=== PATIENT | female | born 1975 | race Caucasian/White ===

== ENCOUNTER 2020-01-02 22:40 | Emergency (ER) | payer SELFPAY ==
[2020-01-02 22:55] VITALS: BP 154/93; PULSE 83; RESP 16; TEMP 36.4; O2SAT 97; BMI 32.9
--- NOTE | 2020-01-02 23:29 | CTR_ITS ---
PROCEDURE INFORMATION: Exam: CT Chest With Contrast Exam date and time: 01/02/2020 11:50 PM Age: 44 years old Clinical indication: Other: Bilat breast pain with numbness; Additional info: Bilateral breast pain with numbness, family h/o breast CA TECHNIQUE: Imaging protocol: Computed tomography of the chest with intravenous contrast. Radiation optimization: All CT scans at this facility use at least one of these dose optimization techniques: automated exposure control; mA and/or kV adjustment per patient size (includes targeted exams where dose is matched to clinical indication); or iterative reconstruction. Contrast material: OMNI 300; Contrast volume: 95 ml; Contrast route: INTRAVENOUS (IV); COMPARISON: CR Chest 1 [place] [id number] 12/05/2017 7:59 PM RADIATION DOSE METRICS: Total DLP (mGy-cm): 657.17 FINDINGS: Lungs: Right lower lobe atelectasis versus infiltrate. Pleural space: Trace right pleural effusion. Heart: Unremarkable. No cardiomegaly. No pericardial effusion. Aorta: Unremarkable. No aortic aneurysm. Lymph nodes: Unremarkable. No enlarged lymph nodes. Gallbladder and bile ducts: Cholecystectomy. Bones/joints: Unremarkable. No acute fracture. Soft tissues: Unremarkable. CT/CT chest w con* [id number] IMPRESSION: 1. Right lower lobe atelectasis versus infiltrate. 2. Trace right pleural effusion. 3. Cholecystectomy. Radiation Dose CTDIVOL = (mGy): DLP = 657.17 (mGy-cm)
[2020-01-02] MEDS: HYDROcodone-acetaminophen 5-325 mg Tablet 1 TAB PO (23:36)
[2020-01-02 23:38] VITALS: BP 171/98; PULSE 78; O2SAT 98
--- NOTE | 2020-01-02 23:46 | W.ED.GENADLT ---
HPI - General Adult General: Chief complaint: Abdominal Pain Stated complaint: Rt abd numbness Time Seen by Provider: 01/02/20 23:02 Source: patient Mode of arrival: ambulatory Limitations: no limitations History of Present Illness: HPI narrative: 44-year-old female patient presents to the emergency department with complaints of 2-day onset of breast pain. She reports left breast enlargement, complaining of right breast numbness with burning and itching. Primary care provider Dr. Colbert, previous mammogram 2 years ago, she denies cough congestion. Positive tobacco use, half pack a day, denies change of cough pattern or sputum production. She reports family history of breast cancer, her mother. Reports onset of right scapular pain/itching and numbness that radiates around to the right breast, she reports mother with similar findings at onset of breast cancer. Caitlin reports she is nervous as symptoms are similar to what her mother experienced. She denies rash or chronic back pain. She denies heavy lifting or falls. [id number]. Onset (ago): day(s) (2) Location: chest, right and upper extremity Severity: moderate Quality: burning, aching, dull and constant Pain Consistency: constant Relieving factors: none Exacerbating factors: none Associated symptoms: Deny chest pain, diaphoresis, dyspnea, fevers/chills, headache(s), nausea, rash, short of breath, vomiting or weakness Treatments prior to arrival: other (Tylenol) Review of Systems General: Reports: 10 or more systems reviewed and unremarkable except in HPI and below Const: Denies: fever(s), chills or diaphoresis Eyes: Denies: blurry vision or eye redness ENMT: Denies: throat pain, dental pain or disequilibrium Card: Denies: chest pain, swelling of feet/ankles or dyspnea on exertion Resp: Denies: dyspnea, productive cough, non-productive cough or wheezing GI: Denies: abdominal pain, nausea or vomiting : Denies: difficulty voiding or dysuria Musc: Reports: other (rt posterior scapular pain); Denies: neck pain or back pain Skin/Breast: Denies: rash or pruritus Neuro: Denies: headache(s), weakness in extremities or behavioral changes Psych: Denies: anxiety or depression George/Lymph: Denies: easy bruising Physical Exam Const: COMMON NORMALS: no acute distress, patient oriented x3, healthy appearing and alert GENERAL APPEARANCE: cooperative, comfortable and well hydrated HENMT: COMMON NORMALS: normocephalic, Normal external nose present and moist oral mucous membranes HEAD & SCALP: normocephalic NOSE: Normal external nose present Eye: COMMON NORMALS: Equal, round and reactive pupils present and EOMs intact bilaterally GENERAL EYE: appearance normal, both eyes and all related structures PUPIL: Yes Equal, round and reactive pupils present Neck/C-Spine: COMMON NORMALS: full ROM and no lymphadenopathy GENERAL: Yes normal visual inspection and Yes trachea midline CERVICAL SPINE: Yes cervical ROM normal, No pain with cervical ROM, No Cervical spine tenderness, No Paracervical muscle tenderness, No Paracervical spasm and No Trapezius muscle tenderness Lymph: LYMPHATIC: no lymphadenopathy noted Chest: COMMONS NORMALS: normal inspection of the chest, normal palpation of entire chest wall and normal inspection of the breasts Breast/axilla inspection: Yes normal inspection of the axillae and Yes normal inspection of the breasts BREAST/AXILLA PALPATION: Yes breast lump (rt breast with fibrocystic findings, tenderness with ductal mammary exam, n) and Yes other (Normal findings of the left breast, bilateral breast without discharge.) Resp: COMMON NORMALS: normal respiratory effort and clear to auscultation bilaterally AUSCULTATION: clear to auscultation bilaterally Cardio: COMMON NORMALS: regular rhythm, S1 normal heart sound present and S2 normal heart sound present RHYTHM: regular rhythm HEART SOUNDS: S1 normal heart sound present and S2 normal heart sound present GI: COMMON NORMALS: Soft to palpation and non-tender INSPECTION: Yes normal to inspection PALPATION: Yes Soft to palpation : COMMON NORMALS: Yes no CVA tenderness BLADDER/KIDNEY EXAM: Yes no CVA tenderness Back/Pelvis: COMMON NORMALS: no CVA tenderness, thoracic and lumbar spine normal to inspection, no thoracic nor lumbar tenderness, thoraco-lumbar ROM normal and straight leg raise negative bilaterally THORACIC SPINE/UPPER BACK: Yes bony scapula findings Extremity: COMMON NORMALS: normal to inspection and capillary refill normal GENERAL: Yes normal exam except as noted RIGHT UPPER EXTREMITY: Yes shoulder joint Right shoulder: Yes Right shoulder joint inspection exam (Normal), Yes palpation, Yes Right shoulder joint ROM exam (Fully intact) and Yes Right shoulder joint neurovascular exam (Intact distally) EXTREMITY IMAGE (BACK): 1. Soft tissue swelling with palpable musculature that reproduces tenderness. Negative rash suggestive of shingles. No midline thoracic or cervical spine vertebral tenderness Neuro: COMMON NORMALS: patient oriented x3 and no focal motor deficits SENSORIUM/ORIENTATION: Yes alert Psych: COMMON NORMALS: mental status grossly normal, Normal thought process present and cooperative ACTIVITY/MOTOR BEHAVIOR: Yes appropriate eye contact THOUGHT PROCESS: Normal thought process present Skin: COMMON NORMALS: no rashes or lesions noted and turgor normal GENERAL SKIN EXAM: no rashes or lesions noted and turgor normal LESIONS: no lesions RASHES: no rashes TRAUMA: no lacerations or abrasions Course ED course: 44-year-old female patient presents to the emergency department with 2-day onset of breast discomfort. CT chest with IV contrast with right pleural effusion, right infiltrate. Case discussed with Dr. Corea along with serology results. No further testing suggested at this time. Diagnostic mammogram ordered as an outpatient, social service consult to help with setting up appointment. Patient was advised to follow-up with Dr. Colbert in 2 to 3 days, placed on doxycycline, albuterol HFA and ibuprofen for pain. Advised to return to emergency department if she developed fever, chest pain, or worsening/ concerning symptoms. Verbalized understanding. Vital Signs: Vital signs: Vital Signs Temperature 97.5 F L 01/02/20 22:55 Pulse Rate 78 01/03/20 01:09 Respiratory Rate 16 01/02/20 22:55 Blood Pressure 169/97 01/03/20 01:09 Pulse Oximetry 96 01/03/20 01:09 [facility] - General Adult Differential Diagnosis: Differential Diagnosis: Herpes zoster, muscle strain, back pain, breast mass Lab Data: Labs: Lab Results 01/02/20 01/02/20 Range/Units 23:30 23:30 WBC 7.8 (4.0-10.0) 10^3/ uL RBC 4.95 (4.1-5.3) 10^6/u L Hgb 13.6 (11.5-15.3) g/dL Hct 41.1 (37.0-47.0) % MCV 83.0 (81-99) fL MCH 27.5 L (28.0-34.0) pg MCHC 33.1 (30.0-36.0) g/dL RDW 13.0 (12.1-15.1) % Plt Count 371 (130-400) 10^3/c mm MPV 9.6 (7.4-10.4) fL Neut % (Auto) 56.4 % Lymph % (Auto) 35.4 % Taney % (Auto) 7.4 % Eos % (Auto) 0.1 % Baso % (Auto) 0.4 % Neut # (Auto) 4.42 (1.8-7.7) 10^3/u L Lymph # (Auto) 2.8 (0.8-4.8) 10^3/u L Taney # (Auto) 0.6 (0.2-0.9) 10^3/u L Eos # (Auto) 0.0 (0.0-0.8) 10^3/u L Baso # (Auto) 0.0 (0.0-0.1) 10^3/u L Nucleated RBC % (a uto) 0 % Nucleated RBCs # 0.0 /100WBC Sodium 138 (136-145) mmol/L Potassium 3.5 (3.5-5.1) mmol/L Chloride 100 (98-107) mmol/L Carbon Dioxide 28 (22-29) mmol/L Anion Gap 13.5 (5-19) BUN 7 (6-20) mg/dL Creatinine 0.8 (0.5-0.9) mg/dL GFR Calculation 77.2 L (90-130) mL/min Glucose 113 (65-115) mg/dL Calculated Osmolal ity 285 (285-295) mOsm/k g Calcium 9.5 (8.5-10.5) mg/dL Total Bilirubin 0.2 (0.15-1.2) mg/dL AST 12 (0-32) U/L ALT 11 (0-33) U/L Alkaline Phosphata se 115 H (35-105) IU/L Total Protein 7.0 (6.6-8.7) g/dL Albumin 4.5 (3.5-5.2) g/dL Globulin 2.5 (1.3-4.6) g/dL Imaging Data^: CT Chest: Radiologist's impression: [address] [address] [address] Scan Report Signed Patient: Caitlin Simpson Unit #: [id number] : 1975 Age/Sex: 44 / F ADM Date: 01/02/20 Loc: ER Room/Bed: Attending Dr: Ordering Provider/Ordering MD: Calista Ralph Date of Service: 01/02/20 Procedure(s): CT chest w con* [id number] Accession Number(s): [id number] Report Number: [id number] PROCEDURE INFORMATION: Exam: CT Chest With Contrast Exam date and time: 01/02/2020 11:50 PM Age: 44 years old Clinical indication: Other: Bilat breast pain with numbness; Additional info: Bilateral breast pain with numbness, family h/o breast CA TECHNIQUE: Imaging protocol: Computed tomography of the chest with intravenous contrast. Radiation optimization: All CT scans at this facility use at least one of these dose optimization techniques: automated exposure control; mA and/or kV adjustment per patient size (includes targeted exams where dose is matched to clinical indication); or iterative reconstruction. Contrast material: OMNI 300; Contrast volume: 95 ml; Contrast route: INTRAVENOUS (IV); COMPARISON: CR Chest 1 [place] [id number] 12/05/2017 7:59 PM RADIATION DOSE METRICS: Total DLP (mGy-cm): 657.17 FINDINGS: Lungs: Right lower lobe atelectasis versus infiltrate. Pleural space: Trace right pleural effusion. Heart: Unremarkable. No cardiomegaly. No pericardial effusion. Aorta: Unremarkable. No aortic aneurysm. Lymph nodes: Unremarkable. No enlarged lymph nodes. Gallbladder and bile ducts: Cholecystectomy. Bones/joints: Unremarkable. No acute fracture. Soft tissues: Unremarkable. CT/CT chest w con* [id number] IMPRESSION: 1. Right lower lobe atelectasis versus infiltrate. 2. Trace right pleural effusion. 3. Cholecystectomy. Radiation Dose CTDIVOL = (mGy): DLP = 657.17 (mGy-cm) Dictated By: Yuri Eldridge MD Signed By: Yuri Eldridge MD Signed Date/Time: 01/03/2033 DD/ Discharge Plan Discharge Patient Disposition: Home Clinical Impression: Acute breast pain, Pleural effusion Pneumonia Qualifiers: Pneumonia type: due to unspecified organism Laterality: right Lung location: lower lobe of lung Qualified Code(s): J18.9 - Pneumonia, unspecified organism Condition: Stable Prescriptions: New ibuprofen 800 mg tablet 800 mg PO TID PRN (Reason: pain) Qty: 30 RF: 0 Ventolin HFA 90 mcg/actuation HFA aerosol inhaler 2 puff INHALATION Q4H PRN (Reason: shortness of breath or wheezing) Qty: 18 RF: 0 doxycycline hyclate 100 mg tablet 100 mg PO BID 10 Days Qty: 20 RF: 0 No Action escitalopram oxalate [Lexapro] 20 mg tablet 20 mg PO DAILY 90 Days Qty: 90 RF: 1 Discharge Orders: Discharge Order (Routine); Ordered 01/03/20 Ordered By: Calista Ralph Referrals: Shahbaz Stevenson FNP [Primary Care Provider] - Discharge Diet: Usual diet Discharge Activity: Limit activity as instructed Patient Instructions: Mammogram (ED), Pleural Effusion (ED), Bacterial Pneumonia (ED) Activity Restrictions/Additional Instructions: Take ibuprofen 3 times daily as directed, take with food to avoid stomach upset, may apply warm moist heat to affected area several times daily for pain, outpatient diagnostic mammogram has been placed, web content & social media manager will contact you with an appointment time and date, please make sure testing is completed, results will be sent to Dr. Colbert. Follow-up with Dr. Colbert in 2 to 3 days for emergency department follow-up. CT scan will need to be reviewed and followed. Return to the emergency department if you develop rash, fever, chills or other concerning symptoms such as chest pain nausea and vomiting Use albuterol inhaler as needed for cough/chest congestion Do not take aqgx-iok-ncqczwj medication such as Aleve, ibuprofen or Advil as duplication of therapy can occur You may take Tylenol, ycbi-esc-njhejnc, 1 g 3 times daily as needed for pain Stand Alone Forms: Work/School Release Coding Level of Care Code ED Epic [facility] Specialist for [facility] Fwd Exam Comprehensive
[2020-01-02 23:55] LABS: Basophils % 0.4 %; Eosinophils % 0.1 %; Hematocrit 41.1 % (37.0-47.0); Hemoglobin 13.6 g/dL (11.5-15.3); Lymphocytes # 2.8 10^3/uL (0.8-4.8); Lymphocytes % 35.4 %; Mean Corpuscular HGB Conc 33.1 g/dL (30.0-36.0); Mean Corpuscular Hemoglobin 27.5 pg (28.0-34.0); Mean Platelet Volume 9.6 fL (7.4-10.4); Monocytes # 0.6 10^3/uL (0.2-0.9); Monocytes % 7.4 %; Neutrophils # 4.42 10^3/uL (1.8-7.7); Neutrophils % 56.4 %; Nucleated Red Blood Cells % 0 %; Platelet Count 371 10^3/cmm (130-400); Red Blood Count 4.95 10^6/uL (4.1-5.3); White Blood Count 7.8 10^3/uL (4.0-10.0)
[2020-01-03] MEDS: iohexol 300 mg/mL 100 mL Btl IV (00:11)
[2020-01-03 00:14] LABS: Alanine Aminotransferase 11 U/L (0-33); Albumin Level 4.5 g/dL (3.5-5.2); Alkaline Phosphatase 115 IU/L (35-105); Anion Gap 13.5 (5-19); Aspartate Amino Transferase 12 U/L (0-32); Blood Urea Nitrogen 7 mg/dL (6-20); Calcium 9.5 mg/dL (8.5-10.5); Carbon Dioxide 28 mmol/L (22-29); Chloride 100 mmol/L (98-107); Globulin 2.5 g/dL (1.3-4.6); Glomerular Filtration Rate 77.2 mL/min (90-130); Glucose 113 mg/dL (65-115); Osmolality Calculated 285 mOsm/kg (285-295); Potassium 3.5 mmol/L (3.5-5.1); Sodium 138 mmol/L (136-145); Total Bilirubin 0.2 mg/dL (0.15-1.2)
[2020-01-03] MEDS: ketorolac 30 mg/mL INJ IVP (00:37)
[2020-01-03 00:42] VITALS: BP 147/95; PULSE 76; O2SAT 98
[2020-01-03] MEDS: doxycycline 100 mg Tablet PO (00:51)
[2020-01-03 01:09] VITALS: BP 169/97; PULSE 78; O2SAT 96
--- NOTE | 2020-01-03 09:18 | DCPLANNER ---
Addendum entered by Diane Parks 01/03/20 15:13: Patient called community case manager back, patient stated that she would like to be established with James De Guzman at the [facility]. trials manager called the [facility], a follow up appointment was scheduled for Wednesday, January 08, 2020 at 1:30 with Amol. trials manager called patient and gave patient the appointment information. trials manager also had an outpatient order for patient to have an outpatient mammogram. trials manager faxed order to centralized scheduling, will call for appointment information. Original Note: trials manager had message to schedule a follow up appointment for patient with Dr. Colbert. trials manager called [facility], spoke with Deja, tried to get a follow up appointment with Dr. Colbert. trials manager was told that patient has not seen Dr. Colbert in a while, and she would be considered a new patient and Dr. Colbert is not taking any new patients at this time. trials manager spoke with patient and informed her of this. Patient asked community case manager to call the [facility] clinic, to see if Dr. Colbert still went to that clinic. trials manager called the clinic spoke with Raquel, was told that Dr. Colbert no longer works at the [facility]. trials manager called patient, a voicemail was left for patient to return human services case manager phone call to let community case manager know which doctor patient would like to be set up with.
--- NOTE | 2020-01-09 13:27 | DCPLANNER ---
Patient has a mammogram scheduled for Sunday, January 26, 2020 at 2:30, centralized scheduling will call patient with appointment information. Patient did have an appointment scheduled for 01.08.20 at the [facility], it was cancelled due to patient request.
--- NOTE | 2020-01-26 15:10 | DCPLANNER ---
Patient had a follow up appointment scheduled for 01.26.20 for a mammogram - patient did attend appointment.
== END 2020-01-03 01:13 | disposition home or self-care (01) ==
PROVIDERS: Emergency Provider Nurse Practitioner Family; PCP Nurse Practitioner Family
DX: N64.4 Mastodynia (principal); J90 Pleural effusion, not elsewhere classified; J18.9 Pneumonia, unspecified organism
CPT/HCPCS: 12345; 71260; 80053; 85025; 96374; 99283; J1885; Q9967

== ENCOUNTER 2020-01-26 11:40 | Outpatient (CLI) | payer SELFPAY ==
--- NOTE | 2020-01-26 11:46 | MM_ITS ---
WS: [id number] DIAGNOSTIC BILATERAL DIGITAL MAMMOGRAM WITH CAD HISTORY: BREAST PAIN; positive FAM HX OF BREAST CA COMPARISON: 02/11/2016 TECHNIQUE: Bilateral craniocaudad, mediolateral oblique, and mediolateral views are submitted. Spot c ompression RIGHT CC, LEFT CC and RIGHT MLO. Computer aided detection utilized. Breast composition: The breasts are heterogeneously dense, which may obscure small masses. Multiple b ilateral partially obscured nodules within each breast. These nodules have been present on prior stud ies. Some of these nodules are larger 1 cm smaller. The largest in the RIGHT breast measures 2 cm. La rgest in the upper outer quadrant of the LEFT breast is 1.0 cm. MM/[place] [id number] IMPRESSION: BI-RADS: 2-Benign FOLLOW UP: 1 Year Follow-up Patient presents for breast pain. No history of new palpable nodules. No order could be obtained for ultrasound. On a prior ultrasound from 02/11/2016 or wilmar d masses and follow-up recommended. No follow-up evaluation here at [facility]. If there are palpable nodules were changes ultrasound should be obt ained.
== END 2020-01-26 11:41 | disposition home or self-care (01) ==
PROVIDERS: PCP Registered Nurse; Visit Provider Nurse Practitioner Family
DX: N64.4 Mastodynia (principal); Z80.3 Family history of malignant neoplasm of breast
CPT/HCPCS: 77066

== ENCOUNTER 2024-07-28 03:36 | Emergency (ER) | payer SELFPAY ==
--- NOTE | 2024-07-28 03:39 | ECG_ITS ---
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 Measurements Intervals [place] Rate: 96 P: 55 HI: 135 QRS: 49 QRSD: 93 T: 43 QT: 347 QTc: 438 Interpretive Statements SINUS RHYTHM NONSPECIFIC ST & T-WAVE ABNORMALITY Compared to ECG 12/05/2017 22:43:16 No significant changes Electronically Signed On 07-28-2024 15:02:44 CDT by Barrett Torres M.D. [email or web address]
[2024-07-28 03:42] VITALS: BP 218/121; PULSE 97; RESP 18; TEMP 36.6; O2SAT 96; BMI 25.7
--- NOTE | 2024-07-28 03:53 | ED_ITS ---
HPI - Chest Pain 2 General: Chief Complaint: Chest Pain Stated Complaint: CP High BP Time Seen by Provider: 07/28/24 03:40 History of Present Illness: Patient presents with chest pain that started last night. Patient reports associated left arm pain and neck pain on the same side. The patient initially attributed symptoms to an anxiety attack, but symptoms worsened overnight. At approximately 1:00 AM, the patient checked blood pressure at home and found it to be 200/117. Patient denies nausea or vomiting. Reports possible sweating but attributes this to menopausal hot flashes. Patient states baseline blood pressure is typically around 130 systolic. No prior cardiac history reported. Patient has not had a medical checkup in 'a while' and is not currently taking any blood pressure medications. Patient is a current smoker. Related Data Previous Rx's ?Medication ?Instructions ?Recorded clonazepam 0.5 mg tablet (Klonopin) 0.5 mg PO DAILY HI N anxiety 30 05/09/20 days #15 tabs escitalopram oxalate 20 mg tablet See Rx Instructions .Route 10/02/20 .COMPLEX #90 tabs losartan 25 mg tablet (Cozaar) 25 mg PO DAILY #30 tabs 07/28/24 Allergies Allergy/AdvReac Type Severity Reaction Status Date / Time tramadol Allergy rash Verified 07/28/24 05:28 Review of Systems 2 General: Reports: 10 or more systems reviewed and unremarkable except in HPI and below PFSH ED 2 PFSH: Medical History (Updated 07/28/24 @ 05:33 by Jose Robert DO) Anxiety Social History Smoking and tobacco/nicotine status: current every day tobacco/nicotine user cigarettes Packs smoked per day: 0.5 Physical Exam 2 Const: COMMON NORMALS: no acute distress, patient oriented x3, alert and well nourished HENMT: COMMON NORMALS: normocephalic HEAD & SCALP: normocephalic Eye: COMMON NORMALS: Equal, round and reactive pupils present, EOMs intact bilaterally and conjunctivae normal CONJUNCTIVA: Yes conjunctivae normal P UPIL: Yes Equal, round and reactive pupils present Neck/C-Spine: COMMON NORMALS: full ROM, no lymphadenopathy, supple, no meningeal signs, no JVD and Thyroid normal THYROID: Thyroid normal Chest: COMMONS NORMALS: normal inspection of the chest and normal palpation of entire chest wall Resp: COMMON NORMALS: normal respiratory effort, No retractions, No use of accessory muscles, clear to auscultation bilaterally and percussion normal A USCULTATION: clear to auscultation bilaterally PERCUSSION: percussion normal Cardio: COMMON NORMALS: no JVD, regular rate and regular rhythm RATE: r egular rate RHYTHM: regular rhythm GI: COMMON NORMALS: Normal to inspection, nondistended, normoactive bowel sounds present, Soft to palpation, non-tender, No hepatosplenomegaly present, no masses and no bruits PALPATION: Yes Soft to palpation and Yes No hepatosplenomegaly present : COMMON NORMALS: Yes no CVA tenderness BLADDER/KIDNEY EXAM: Yes no CVA tenderness Back/Pelvis: COMMON NORMALS: no CVA tenderness Extremity: COMMON NORMALS: normal to inspection, full ROM, capillary refill normal, no joint enlargement, no clubbing, cyanosis or edema, no calf tenderness and no pedal edema Neuro: COMMON NORMALS: patient oriented x3 SENSORIUM/ORIENTATION: Yes alert MENINGEAL SIGNS: Yes no meningeal signs Skin: COMMON NORMALS: no rashes or lesions noted, turgor normal and no jaundice GENERAL SKIN EXAM: no rashes or lesions noted and turgor normal Course 2 Vital Signs: Vital signs: Vital Signs Temperature 98 F 07/28/24 03:42 Pulse Rate 70 07/28/24 04:15 Respiratory Rate 18 07/28/24 04:15 Blood Pressure 163/95 07/28/24 04:15 Pulse Oximetry 97 07/28/24 04:15 MDM - Chest Pain Medical Decision Making 1. Acute Chest Pain with Hypertensive Urgency - Concerning for possible acute coronary syndrome given chest pain radiating to left arm and neck - Risk factors include smoking, hypertension, and possible perimenopausal status - Plan: Immediate blood pressure management - Cardiac workup including ECG, cardiac enzymes, and continuous cardiac monitoring - Consider aspirin if not contraindicated 2. Severe Hypertension (200/117) - Requires urgent management to reduce risk of end-organ damage - Plan: IV antihypertensive medication with careful titration - Monitor for signs of end-organ damage - Outpatient follow-up for long-term hypertension management 3. Tobacco Use - Contributing factor to cardiovascular disease - Plan: Smoking cessation counseling once acute issues are stabilized - Provide resources for smoking cessation programs 4. Preventive Care - Patient overdue for routine health maintenance - Plan: Schedule comprehensive physical examination after resolution of acute issues - Age-appropriate cancer screenings and preventive care Patient's workup in the emergency department was largely normal or nondiagnostic. She had some nonspecific changes on her EKG she has had pain fairly constant for the past couple of days and reports that she is under a fair amount of stress. The patient's cardiac enzyme's were negative given the duration of her symptoms the single troponin should rule her out. I have recommended that she start monitoring her blood pressure I did go ahead and prescribe some losartan and recommend that she get a blood pressure cuff and follow-up with primary care. Lab Data 07/28/24 03:45 07/28/24 03:45 Laboratory Results WBC 8.70 10^3/uL (3.29-11.43) 07/28/24 03:45 RBC 4.75 10^6/uL (3.85-5.65) 07/28/24 03:45 Hgb 13.20 g/dL (11.27-16.99) 07/28/24 03:45 Hct 39.4 % (36-47) 07/28/24 03:45 MCV 82.9 fl (85-98) L 07/28/24 03:45 MCH 27.8 pg (27-33) 07/28/24 03:45 MCHC 33.5 g/dL (30-55) 07/28/24 03:45 RDW 12.9 % (12.1-15.1) 07/28/24 03:45 Plt Count 323 10^3/cmm (157-399) 07/28/24 03:45 MPV 10.0 fL (7.4-10.4) 07/28/24 03:45 Neut % (Auto) 57.3 % 07/28/24 03:45 Lymph % (Auto) 33.0 % 07/28/24 03:45 [place]val % (Auto) 6.3 % 07/28/24 03:45 Eos % (Auto) 2.6 % 07/28/24 03:45 Baso % (Auto) 0.5 % 07/28/24 03:45 Neut # (Auto) 4.98 10^3/uL (1.8-7.7) 07/28/24 03:45 Lymph # (Auto) 2.9 10^3/uL (0.8-4.8) 07/28/24 03:45 Duval # (Auto) 0.6 10^3/uL (0.2-0.9) 07/28/24 03:45 Eos # (Auto) 0.2 10^3/uL (0.0-0.8) 07/28/24 03:45 Baso # (Auto) 0.0 10^3/uL (0.0-0.1) 07/28/24 03:45 Nucleated RBC % (auto) 0 % 07/28/24 03:45 Nucleated RBCs # 0.0 /100WBC 07/28/24 03:45 Sodium 143 mmol/L (136-145) 07/28/24 03:45 Potassium 3.2 mmol/L (3.5-5.1) L 07/28/24 03:45 Chloride 101 mmol/L (98-107) 07/28/24 03:45 Carbon Dioxide 28 mmol/L (22-29) 07/28/24 03:45 Anion Gap 17.2 (5-19) 07/28/24 03:45 BUN 7 mg/dL (6-20) 07/28/24 03:45 Creatinine 0.6 mg/dL (0.5-0.9) 07/28/24 03:45 GFR Calculation 105.8 mL/min (90-130) 07/28/24 03:45 Glucose 114 mg/dL (65-115) 07/28/24 03:45 Calculated Osmolality 295 mOsm/kg (285-295) 07/28/24 03:45 Calcium 9.6 mg/dL (8.5-10.5) 07/28/24 03:45 Total Bilirubin 0.5 mg/dL (0.15-1.2) 07/28/24 03:45 AST 15 U/L (0-32) 07/28/24 03:45 ALT 16 U/L (0-33) 07/28/24 03:45 Alkaline Phosphatase 113 U/L (35-105) H 07/28/24 03:45 Troponin T Baseline < 6 ng/L (0-10) 07/28/24 03:45 Total Protein 6.8 g/dL (6.6-8.7) 07/28/24 03:45 Albumin 4.4 g/dL (3.5-5.2) 07/28/24 03:45 Globulin 2.4 g/dL (1.3-4.6) 07/28/24 03:45 XR interpretation done by ED provider, pending radiology final review Discharge Plan Discharge Patient Disposition: Home Clinical Impression: Atypical chest pain, Anxiety, Elevated blood pressure reading Condition: Stable Prescriptions: New losartan [Cozaar] 25 mg tablet 25 mg PO DAILY Qty: 30 0RF No Action clonazepam [Klonopin] 0.5 mg tablet 0.5 mg PO DAILY PRN (Reason: anxiety) 30 Days Qty: 15 0RF escitalopram oxalate 20 mg tablet See Rx Instructions .ROUTE .COMPLEX Qty: 90 0RF Dose Instruction: TAKE 1 TABLET BY MOUTH DAILY Rx Instructions: TAKE 1 TABLET BY MOUTH DAILY Discharge Orders: Discharge ED (Routine); Ordered 07/28/24 Ordered By: Jose Robert Referrals: Ace Cummins FNP [Primary Care Provider, Family Practice] Discharge Diet: Advance as tolerated and Cardiac Discharge Activity: Resume usual activity Patient Instructions: Opioid Safety, Pain Management Activity Restrictions/Additional Instructions: 1. 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 2. Follow-up with primary care please give a list of area primary care physicians taking new patients. 3. Return to the emergency department for new or worsening symptoms. 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
[2024-07-28 04:02] LABS: Basophils % 0.5 %; Eosinophils # 0.2 10^3/uL (0.0-0.8); Eosinophils % 2.6 %; Hematocrit 39.4 % (36-47); Lymphocytes # 2.9 10^3/uL (0.8-4.8); Mean Corpuscular HGB Conc 33.5 g/dL (30-55); Mean Corpuscular Hemoglobin 27.8 pg (27-33); Mean Corpuscular Volume 82.9 fl (85-98); Monocytes # 0.6 10^3/uL (0.2-0.9); Monocytes % 6.3 %; Neutrophils # 4.98 10^3/uL (1.8-7.7); Neutrophils % 57.3 %; Nucleated Red Blood Cells % 0 %; Platelet Count 323 10^3/cmm (157-399); Red Blood Count 4.75 10^6/uL (3.85-5.65); Red Cell Distribution Width 12.9 % (12.1-15.1)
[2024-07-28 04:15] VITALS: BP 163/95; PULSE 70; RESP 18; O2SAT 97
[2024-07-28 04:19] LABS: Troponin(5th) Baseline < 6 ng/L (0-10)
[2024-07-28 04:22] LABS: Alanine Aminotransferase 16 U/L (0-33); Albumin Level 4.4 g/dL (3.5-5.2); Alkaline Phosphatase 113 U/L (35-105); Anion Gap 17.2 (5-19); Aspartate Amino Transferase 15 U/L (0-32); Blood Urea Nitrogen 7 mg/dL (6-20); Calcium 9.6 mg/dL (8.5-10.5); Carbon Dioxide 28 mmol/L (22-29); Chloride 101 mmol/L (98-107); Creatinine Clr Calc Pharmacy 122.1925; Globulin 2.4 g/dL (1.3-4.6); Glomerular Filtration Rate 105.8 mL/min (90-130); Glucose 114 mg/dL (65-115); Osmolality Calculated 295 mOsm/kg (285-295); Potassium 3.2 mmol/L (3.5-5.1); Sodium 143 mmol/L (136-145); Total Bilirubin 0.5 mg/dL (0.15-1.2); Total Protein 6.8 g/dL (6.6-8.7)
--- NOTE | 2024-07-28 04:56 | XRR_ITS ---
PROCEDURE INFORMATION: Exam: XR Chest Exam date and time: 07/28/2024 5:05 AM Age: 48 years old Clinical indication: Pain; Chest pressure; Additional info: Cp TECHNIQUE: Imaging protocol: Radiologic exam of the chest. Views: 1 view. COMPARISON: CT chest w con* [id number] 01/03/2020 12:08 AM FINDINGS: Lungs: Unremarkable. No consolidation. Pleural spaces: Unremarkable. No pleural effusion. No pneumothorax. Heart/Mediastinum: Unremarkable. No cardiomegaly. Bones/joints: Unremarkable. XR/XR chest 1V [id number] IMPRESSION: No acute findings.
[2024-07-28 05:59] VITALS: BP 154/98; PULSE 68; RESP 17; O2SAT 96
== END 2024-07-28 06:00 | disposition home or self-care (01) ==
PROVIDERS: Emergency Provider Family Medicine; PCP Registered Nurse
DX: R07.89 Other chest pain (principal); R03.0 Elevated blood-pressure reading, without diagnosis of hypertension; F17.210 Nicotine dependence, cigarettes, uncomplicated
CPT/HCPCS: 71045; 80053; 84484; 85025; 93005; 99285